=== PATIENT | female | born 1970 | race Caucasian/White ===

== ENCOUNTER → 2018-08-15 | Outpatient (CLI) | payer SELFPAY ==
[2018-08-15 07:34] LABS: EOS # 0.2 (0.04-0.40); EOS % 4.4 % (1.0-5.0); HEMATOCRIT 39.8 % (37.0-47.0); HEMOGLOBIN 12.9 g/dL (12.5-16.0); LYMPH# 1.6 (1.50-4.00); MEAN CELL VOLUME 97 fl (78-100); MEAN CORPUSCULAR HEMOGLOBIN 31 pg (27-31); MEAN CORPUSCULAR HGB CONC 32 g/dL (33-37); MEAN PLATELET VOLUME 11.2 fl (7.4-10.4); MONO # 0.4 (0.20-0.80); NEU # 1.5 (1.40-6.50); PLATELET COUNT 297 K/mm3 (130-400); RED BLOOD COUNT 4.12 M/mm3 (4.10-5.30); RED CELL DISTRIBUTION WIDTH 12.9 % (11.5-14.5); WHITE BLOOD COUNT 3.6 K/mm3 (4.8-10.8)
[2018-08-15 07:38] LABS: ALBUMIN 3.9 g/dL (3.5-5.0)
[2018-08-15 07:39] LABS: CALCIUM 8.9 mg/dL (8.3-10.5)
[2018-08-15 07:40] LABS: TOTAL PROTEIN 6.8 g/dL (6.4-8.3)
[2018-08-15 07:42] LABS: TOTAL BILIRUBIN 1.1 mg/dL (0.2-1.2)
[2018-08-15 16:30] LABS: FOLLICLE STIMULATING HORMONE 2.5 mIU/mL (()); LUTENIZING HORMONE 4.3 mIU/mL (()); PROGESTERONE 0.2 ng/mL (())
== END ==
LOC: LAB 07:09
PROVIDERS: Family Medicine
DX: Z01.419 Encounter for gynecological examination (general) (routine) without abnormal findings (principal); E78.5 Hyperlipidemia, unspecified; E55.9 Vitamin D deficiency, unspecified; Z78.0 Asymptomatic menopausal state; R53.83 Other fatigue

== ENCOUNTER → 2019-01-13 | Outpatient (CLI) | payer SELFPAY | LOC: LAB 15:49 | DX: Z00.00 Encounter for general adult medical examination without abnormal findings (principal); B19.20 Unspecified viral hepatitis C without hepatic coma ==

== ENCOUNTER → 2020-05-20 | Outpatient (CLI) | payer SELFPAY | LOC: RAD 11:00 | DX: N28.89 Other specified disorders of kidney and ureter (principal); Z80.51 Family history of malignant neoplasm of kidney ==

== ENCOUNTER → 2021-04-26 | Outpatient (CLI) | payer SELFPAY ==
[2021-04-26 11:30] LABS: ALBUMIN 4.3 g/dL (3.5-5.0); POTASSIUM 4.3 mmol/L (3.5-5.1)
[2021-04-26 11:31] LABS: CALCIUM 9.5 mg/dL (8.3-10.5)
[2021-04-26 11:32] LABS: TOTAL PROTEIN 7.4 g/dL (6.4-8.3)
[2021-04-26 11:49] LABS: BASO # 0.02 K/mm3 (0.02-0.10); EOS # 0.06 K/mm3 (0.04-0.40); EOS % 1.3 % (1.0-5.0); HEMATOCRIT 40.7 % (37.0-47.0); HEMOGLOBIN 13.7 g/dL (12.5-16.0); LYMPH# 1.73 K/mm3 (1.50-4.00); MEAN CELL VOLUME 95 fl (78-100); MEAN CORPUSCULAR HEMOGLOBIN 32 pg (27-31); MEAN CORPUSCULAR HGB CONC 34 g/dL (33-37); MEAN PLATELET VOLUME 11.4 fl (7.4-10.4); MONO # 0.44 K/mm3 (0.20-0.80); NEU # 2.28 K/mm3 (1.40-6.50); PLATELET COUNT 309 K/mm3 (130-400); RED BLOOD COUNT 4.28 M/mm3 (4.10-5.30); RED CELL DISTRIBUTION WIDTH 12.4 % (11.5-14.5); WHITE BLOOD COUNT 4.5 K/mm3 (4.8-10.8)
== END ==
LOC: LAB 10:29
PROVIDERS: Family Medicine
DX: Z00.00 Encounter for general adult medical examination without abnormal findings (principal); E78.5 Hyperlipidemia, unspecified; H93.13 Tinnitus, bilateral; E03.9 Hypothyroidism, unspecified; E55.9 Vitamin D deficiency, unspecified

== ENCOUNTER 2023-10-28 17:26 | Emergency (ER) | payer SELFPAY ==
[~2023-10-28] VITALS: Ht 167.6 cm; Wt 74.5 kg
[2023-10-28 19:03] VITALS: BP 143/102
== END 2023-10-28 19:05 | disposition home or self-care (01) ==
LOC: ED 17:26
DX: S93.401A Sprain of unspecified ligament of right ankle, initial encounter (principal); X50.1XXA Overexertion from prolonged static or awkward postures, initial encounter; W18.30XA Fall on same level, unspecified, initial encounter; Y93.79 Activity, other specified sports and athletics
CPT/HCPCS: L4396

== ENCOUNTER → 2023-11-12 | Outpatient (CLI) | payer SELFPAY | LOC: MAMMO 16:00 | DX: Z12.31 Encounter for screening mammogram for malignant neoplasm of breast (principal) ==